=== PATIENT | male | born 1970 | race African-American/Black ===

== ENCOUNTER 2018-03-09 07:08 | Inpatient (IN) | payer MEDICAID ==
[~2018-03-09] VITALS: Ht 172.7 cm; Wt 113.4 kg
[2018-03-09] MEDS ORDERED: IBUPROFEN 600MG TABLET PO STA (07:25)
[2018-03-09] MEDS ORDERED: VANCOMYCIN 1 G PREMIX 200 ML IV ONE (07:30)
[2018-03-09] MEDS ORDERED: PIPERACILLIN/TAZ 3.375G PREMIX 50 ML IV ONE (07:30)
[2018-03-09 08:08] LABS: HEMOGLOBIN. 9.7 g/dL (14.0-18.0); MEAN CORPUSCULAR HEMOGLOBIN 27.2 pg (28.0-32.0); MEAN CORPUSCULAR VOLUME 87.2 fL (80.0-94.0); MEAN PLATELET VOLUME 8.6 fl (7.4-10.4); PLATELET 209 x1000/uL (130-400); RED BLOOD CELL COUNT 3.55 mill/uL (4.7-6.1); RED CELL DISTRIBUTION WIDTH 18.6 % (11.6-14.6)
[2018-03-09 08:12] LABS: CHLORIDE 98 mEq/L (98-107); INR 1.1; PROTHROMBIN TIME 11.8 sec (9.4-11.6)
[2018-03-09 08:34] LABS: PLATELET ESTIMATE NORMAL
[2018-03-09] MEDS ORDERED: SODIUM CHLORIDE 0.9% 1000ML BAG (SEPSIS BOLUS) IV ONE (09:15)
[2018-03-09] MEDS ORDERED: ACETAMINOPHEN 650MG/20.3ML UDC GT PRN (09:45)
[2018-03-09] MEDS ORDERED: HYDROCODONE/ACETAMINOPHEN 10/325MG TABLET PO PRN (09:45)
[2018-03-09] MEDS ORDERED: CLONIDINE 0.1MG TABLET PO PRN (09:45)
[2018-03-09] MEDS ORDERED: IPRATROPIUM/ALBUTEROL 0.5-3(2.5)MG/3ML NEB INH PRN (09:45)
[2018-03-09] MEDS ORDERED: MAGNESIUM/ALUMINUM HYDROXIDE/SIMETHICONE 30ML UDC PO PRN (09:45)
[2018-03-09] MEDS ORDERED: GUAIFENESIN 200MG/10ML SUGAR FREE UDC PO PRN (09:45)
[2018-03-09] MEDS ORDERED: ACETAMINOPHEN 650MG SUPP PR PRN (09:45)
[2018-03-09] MEDS ORDERED: DOCUSATE SODIUM 100MG CAPSULE PO PRN (09:45)
[2018-03-09] MEDS ORDERED: LORAZEPAM 0.5MG TABLET PO PRN (09:45)
[2018-03-09] MEDS ORDERED: DIPHENHYDRAMINE 50MG/ML VIAL IV PRN (09:45)
[2018-03-09] MEDS ORDERED: HYDROCODONE/ACETAMINOPHEN 5/325MG TABLET PO PRN (09:45)
[2018-03-09] MEDS ORDERED: ONDANSETRON HCL 4MG/2ML VIAL IV PRN (09:45)
[2018-03-09] MEDS ORDERED: NA PHOS,M-B/NA PHOS,DI-BA ENEMA 118ML PR PRN (09:45)
[2018-03-09] MEDS: ACETAMINOPHEN 325MG TABLET PO PRN ×2 (16:37→23:09)
[2018-03-09 18:03] VITALS: BP 90/47
[2018-03-09 20:00] VITALS: BP 88/49
[2018-03-09] MEDS ORDERED: VANCOMYCIN 500 MG PREMIX 100 ML IV NR (23:00)
[2018-03-09] MEDS: PIPERACILLIN/TAZOBACTAM 2.25 G in DEXTROSE 5% WATER 50 ML IV SCH (23:10)
[2018-03-10] VITALS (25 sets, daily range): BP systolic 75–142; BP diastolic 40–82
[2018-03-10] MEDS ORDERED: VANCOMYCIN 500 MG PREMIX 100 ML IV SCH (01:00)
[2018-03-10] MEDS ORDERED: CINA30 PO (02:08)
[2018-03-10] MEDS ORDERED: SEVE800T8 PO (02:08)
[2018-03-10] MEDS: ACETAMINOPHEN 325MG TABLET PO PRN ×2 (04:58→21:41)
[2018-03-10] MEDS: PIPERACILLIN/TAZOBACTAM 2.25 G in DEXTROSE 5% WATER 50 ML IV SCH (05:33)
[2018-03-10 07:04] LABS: HEMATOCRIT. 27.4 % (42.0-52.0); HEMOGLOBIN. 8.7 g/dL (14.0-18.0); MEAN CORPUSCULAR HEMOGLOBIN 27.7 pg (28.0-32.0); MEAN CORPUSCULAR VOLUME 86.9 fL (80.0-94.0); MEAN PLATELET VOLUME 9.6 fl (7.4-10.4); PLATELET 166 x1000/uL (130-400); RED BLOOD CELL COUNT 3.15 mill/uL (4.7-6.1); RED CELL DISTRIBUTION WIDTH 18.9 % (11.6-14.6)
[2018-03-10 07:12] LABS: AMMONIA 19 uMol/L (<32)
[2018-03-10 07:21] LABS: CHLORIDE 94 mEq/L (98-107)
[2018-03-10 07:31] LABS: PHOSPHORUS 4.3 mg/dL (2.5-4.9)
[2018-03-10 07:33] LABS: T4 FREE 1.02 ng/dL (0.76-1.46)
[2018-03-10] MEDS ORDERED: VANCOMYCIN 1 G PREMIX 200 ML IV SCH (16:00)
[2018-03-10] MEDS ORDERED: SODIUM CHLORIDE 0.9% 250 ML IV ONE (20:30)
[2018-03-10] MEDS ORDERED: NOREPINEPHRINE 4 MG in DEXT 5% WATER 246 ML IV PRN (21:01)
[2018-03-10] MEDS: MIDODRINE HCL 5MG TABLET PO SCH (21:15)
[2018-03-10 21:26] LABS: PLATELET ESTIMATE NORMAL
[2018-03-11] VITALS (30 sets, daily range): BP systolic 2–133; BP diastolic 41–82
[2018-03-11] MEDS: MIDODRINE HCL 5MG TABLET PO SCH ×3 (08:34→18:02)
[2018-03-11 10:34] LABS: HEMATOCRIT. 27.8 % (42.0-52.0); HEMOGLOBIN. 8.8 g/dL (14.0-18.0); MEAN CORPUSCULAR HEMOGLOBIN 27.7 pg (28.0-32.0); MEAN CORPUSCULAR VOLUME 87.1 fL (80.0-94.0); MEAN PLATELET VOLUME 9.6 fl (7.4-10.4); PLATELET 158 x1000/uL (130-400); RED BLOOD CELL COUNT 3.19 mill/uL (4.7-6.1); RED CELL DISTRIBUTION WIDTH 18.8 % (11.6-14.6)
[2018-03-11 11:21] LABS: PLATELET ESTIMATE NORMAL
== END 2018-03-11 22:40 | disposition short-term general hospital (02) | DRG 721 ==
LOC: ER 07:08 → OBSVTOIN 09:13 → 8WST 09:13 → EDBEDREQTM 09:17 → EDBEDREQ 09:17 → EDBEDREQSVC 09:17 → ENRESERV 15:47 → 3WST 03-10 01:12 → MICUNO 03-10 23:25 → 7WST 03-11 16:18
PROVIDERS: ADMIT Internal Medicine; ATTEND Internal Medicine
PROC: 5A1D70Z Performance of Urinary Filtration, Intermittent, Less than 6 Hours Per Day (ICD-10-PCS; principal; 2018-03-09)
PROC: 5A1D70Z Performance of Urinary Filtration, Intermittent, Less than 6 Hours Per Day (ICD-10-PCS; 2018-03-11)
DX: T80.211A Bloodstream infection due to central venous catheter, initial encounter (principal); I21.4 Non-ST elevation (NSTEMI) myocardial infarction; R65.20 Severe sepsis without septic shock; A41.9 Sepsis, unspecified organism; N18.6 End stage renal disease; I13.11 Hypertensive heart and chronic kidney disease without heart failure, with stage 5 chronic kidney disease, or end stage renal disease; I95.9 Hypotension, unspecified; B95.62 Methicillin resistant Staphylococcus aureus infection as the cause of diseases classified elsewhere; L02.413 Cutaneous abscess of right upper limb; D63.8 Anemia in other chronic diseases classified elsewhere; G47.33 Obstructive sleep apnea (adult) (pediatric); Z82.49 Family history of ischemic heart disease and other diseases of the circulatory system; Z89.511 Acquired absence of right leg below knee; Z99.2 Dependence on renal dialysis; Z79.899 Other long term (current) drug therapy; Y84.1 Kidney dialysis as the cause of abnormal reaction of the patient, or of later complication, without mention of misadventure at the time of the procedure; Y92.89 Other specified places as the place of occurrence of the external cause; Y82.8 Other medical devices associated with adverse incidents
CPT/HCPCS: 36415; 71045; 76881; 80048; 80053; 80061; 82140; 82550; 83605; 83690; 83735; 84100; 84145; 84439; 84443; 84481; 84484; 85025; 85610; 87040; 87077; 93005; 96365; 96366; 96368; 99291; J2543; J3370; J7030; J7050; J7060; J7620

== ENCOUNTER 2018-05-09 06:40 | Emergency (ER) | payer MEDICAID ==
[~2018-05-09] VITALS: Ht 172.7 cm; Wt 115.0 kg
[~2018-05-09 06:40] MED LIST: CINA30 PO; SEVE800T8 PO
[2018-05-09] MEDS ORDERED: ASPIRIN 81MG TABLET PO STA (06:59)
[2018-05-09] MEDS ORDERED: NITROGLYCERIN 0.4MG TABLET SL SL PRN (07:00)
[2018-05-09] MEDS ORDERED: ONDANSETRON HCL 4MG/2ML VIAL IV STA (07:04)
[2018-05-09] MEDS ORDERED: MORPHINE SULFATE 4 MG/ML CPJ (NOT FOR IM USE) IV STA (07:04)
[2018-05-09 07:38] LABS: BASOPHILS % 1.1 % (0.0-2.0); EOSINOPHILS % 1.6 % (0.0-5.0); HEMATOCRIT. 29.6 % (42.0-52.0); HEMOGLOBIN. 9.1 g/dL (14.0-18.0); LYMPHOCYTES % 12.1 % (20.0-50.0); MEAN CORPUSCULAR HEMOGLOBIN 25.4 pg (28.0-32.0); MEAN CORPUSCULAR VOLUME 82.3 fL (80.0-94.0); MEAN PLATELET VOLUME 7.4 fl (7.4-10.4); NEUTROPHILS % 83.2 % (40.0-76.0); PLATELET 473 x1000/uL (130-400); RED BLOOD CELL COUNT 3.59 mill/uL (4.7-6.1); RED CELL DISTRIBUTION WIDTH 20.5 % (11.6-14.6)
[2018-05-09 07:46] LABS: CHLORIDE 99 mEq/L (98-107)
[2018-05-09 07:47] LABS: INR 1.1; PARTIAL THROMBOPLASTIN TIME 30.3 sec (23.4-31.0); PROTHROMBIN TIME 11.4 sec (9.4-11.6)
[2018-05-09 07:51] VITALS: BP 129/79
== END 2018-05-09 08:03 | disposition short-term general hospital (02) ==
LOC: ER 06:40
DX: I21.3 ST elevation (STEMI) myocardial infarction of unspecified site (principal); I12.0 Hypertensive chronic kidney disease with stage 5 chronic kidney disease or end stage renal disease; N18.6 End stage renal disease; F17.210 Nicotine dependence, cigarettes, uncomplicated; Z99.2 Dependence on renal dialysis
CPT/HCPCS: 36415; 71045; 80053; 83880; 84484; 85025; 85610; 85730; 93005; 96374; 96375; 99291; J2270; J2405; Z7610